=== PATIENT | female | born 1960 | race Hispanic/Latino ===

== ENCOUNTER 2017-11-05 15:25 | Outpatient (CLI) | payer BC ==
--- NOTE | 2017-11-06 11:12 | MMO ---
MAMMOGRAM DIGITAL SCREENING BILATERAL: DATE: 11/05/17 HISTORY: 57-year-old female for routine bilateral screening mammogram. COMPARISON: 09/05/16, 05/14/15, and 05/12/14. TECHNIQUE: Digital mammographic views. Computer-aided detection (CAD) utilized. FINDINGS: There are scattered areas of fibroglandular density. There is no evidence of suspicious mass, suspicious calcifications, or architectural distortion. The re is no significant interval change since the prior mammogram. IMPRESSION: 1. BIRADS 1 - Negative. 2. Recommendation: routine bilateral annual screening mammogram (unless the patient develops suspici ous clinical findings that would warrant earlier imaging follow up). myah [] POS: RUDY
== END 2017-11-05 15:26 | disposition home or self-care (01) ==
LOC: SCSMAMMO 15:25
PROVIDERS: ATTEND Obstetrics & Gynecology
DX: Z12.31 Encounter for screening mammogram for malignant neoplasm of breast (principal)
CPT/HCPCS: 77067

== ENCOUNTER 2018-04-24 10:47 | Outpatient (CLI) | payer BC ==
--- NOTE | 2018-04-24 14:03 | RAD ---
DOUBLE CONTRAST BARIUM ESOPHAGRAM: Date: 04/24/18 INDICATION: Dysphagia with gastroesophageal reflux, ongoing for 3-4 months. COMPARISON: None. TECHNIQUE: Thin barium, thick barium, and effervescent crystals utilized for double contrast esophagram. The tot al fluoroscopic time was 1.6 minutes. Total exposure was 1084.0 mGy*cm^2. FINDINGS: The esophagus demonstrated a normal mucosal pattern and motility. There was severe gastroesophageal r eflux elicited with Valsalva maneuvers up to the cervical spine. No intraluminal mass or stricture de monstrated. 12.5 mm barium tablet passed without difficulty. IMPRESSION: 1. Severe gastroesophageal reflux. 2. No definite intraluminal mass, stricture, or gross mucosal abnormality is demonstrated. POS: RUDY
== END 2018-04-24 10:48 | disposition home or self-care (01) ==
LOC: RAD 10:47
PROVIDERS: ATTEND Family Medicine
DX: R13.10 Dysphagia, unspecified (principal); K21.9 Gastro-esophageal reflux disease without esophagitis
CPT/HCPCS: 74220

== ENCOUNTER 2019-01-17 15:13 | Outpatient (CLI) | payer BC ==
--- NOTE | 2019-01-17 17:38 | MMO ---
Bilateral MAMMO Bilat Screen [facility]DI. CLINICAL HISTORY: Patient is 58 years old and is seen for screening. The patient has no family history of breast cancer. The patient has no personal history of cancer. VIEWS: The views performed were: bilateral craniocaudal and bilateral mediolateral oblique. FILMS COMPARED: The present examination has been compared to prior imaging studies performed at [facility] on 05/12/2014, 05/14/2015, 09/05/2016 and 11/05/2017. This study has been interpreted with the assistance of computer-aided detection. MAMMOGRAM FINDINGS: There are scattered fibroglandular densities. There are no suspicious masses, suspicious calcifications, or new areas of architectural distortion. IMPRESSION: THERE IS NO MAMMOGRAPHIC EVIDENCE OF MALIGNANCY. A ROUTINE FOLLOW-UP MAMMOGRAM IN 1 YEAR IS RECOMMENDED. ACR BI-RADS Category 1 - Negative MAMMOGRAPHY NOTE: 1. A negative mammogram report should not delay a biopsy if a dominant of clinically suspicious mass is present. 2. Approximately 10% to 15% of breast cancers are not detected by mammography. 3. Adenosis and dense breasts may obscure an underlying neoplasm.
== END 2019-01-17 15:14 | disposition home or self-care (01) ==
LOC: SCSMAMMO 15:13
PROVIDERS: ATTEND Obstetrics & Gynecology
DX: Z12.31 Encounter for screening mammogram for malignant neoplasm of breast (principal)
CPT/HCPCS: 77067